=== PATIENT | male | born 1965 | race African-American/Black ===

== ENCOUNTER 2017-06-19 00:42 | Emergency (ER) | payer SELFPAY ==
[2017-06-19 00:51] VITALS: BP 164/94; BMI 34.2
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
== END 2017-06-19 01:10 | disposition left against medical advice (07) ==
LOC: ER 00:42
DX: S09.8XXA Other specified injuries of head, initial encounter (principal); S00.81XA Abrasion of other part of head, initial encounter; V19.9XXA Pedal cyclist (driver) (passenger) injured in unspecified traffic accident, initial encounter
CPT/HCPCS: 99281; 99282

== ENCOUNTER 2025-03-12 11:42 | Observation (INO) ==
[2025-03-12 12:12] LABS: MEAN PLATELET VOLUME 8.0 fL (7.4-11.0); RED CELL DISTRIBUTION WIDTH 15.2 % (11.6-16.5)
--- NOTE | 2025-03-12 12:13 | EKG ---
Test Reason : chest pain Blood Pressure : */* mmHG Vent. Rate : 65 BPM Atrial Rate : 65 BPM P-R Int : 156 ms QRS Dur : 102 ms QT Int : 394 ms P-R-T Axes : -2 -34 234 degrees QTc Int : 409 ms Normal sinus rhythm Left axis deviation Moderate voltage criteria for LVH, may be normal variant ( R in aVL , Sibley product ) Nonspecific T wave abnormality Abnormal ECG When compared with ECG of 31-JAN-2025 21:45, No significant change was found Confirmed by Abdelrahman Lake MD ([id number]) on 03/12/2025 12:29:28 PM Referred By: Confirmed By: Abdelrahman Lake MD
--- NOTE | 2025-03-12 12:17 | DR.CP ---
HPI Time Seen Time Seen by Provider: 03/12/25 11:58 PCP Primary Care Physician: CHANTEL Gallegos Complaint Chief Complaint Doctor Comments: 59 yo M, hx of CVA, c/o bilat chest pain for past 48h, accomp by dyspnea. Denies other complaints. Pain currently 06/07. Chief Complaint:: Patient c/o generalized CP, shorntess of breath and dizziness since Tuesday. agrees with this statement and states that she called EMS to him on Tuesday bc he would not respond to her, just look at her, but once EMS arrived he was responding and refused to go to hospital. COVID-19 Coronavirus risk:travel/contact w/high risk person: No Has patient experienced Coronavirus symptoms: No Source History Provided: Patient, Significant Other and EMS Mode of Arrival Mode of Arrival: EMS Timing Onset of Chief Complaint: 03/10/25 Location Chest Pain Radiation Location: None Associated Signs and Symptoms Associated Signs and Symptoms: Shortness of Breath PMH PMH Past Medical History: Yes Past Medical History: COPD, CVA, Gout, Hypertension and Sleep Apnea Past Surgical History: Yes Surgical History: Other Past Surgical History Comment: blood clot removed from brain 2021 Family History History of Family Medical Conditions: Yes Family Medical History: Diabetes Mellitus and Hypertension Social History Type of Tobacco Use: Cigarettes Alcohol Use: None Do you use any recreational Drugs:: No Lives With: Spouse Lives Where: Home Travel Risk Coronavirus risk:travel/contact w/high risk person: No Has patient experienced Coronavirus symptoms: No Infectious screening Have you traveled outside the country in the last 6 months?: No Isolation: Standard ROS Review of Systems Respiratoy: Short of Breath Cardiovascular: Chest Pain All Other Systems: Reviewed and Negative PE Vitals Vitals: Vital Signs Temperature 98.0 F Pulse Rate 55 Pulse Rate 55 Pulse Rate 57 Pulse Rate 57 Pulse Rate 56 Pulse Rate 56 Pulse Rate 58 Pulse Rate 59 Pulse Rate 59 Pulse Rate 62 Pulse Rate 60 Pulse Rate 62 Pulse Rate 70 Pulse Rate 62 Pulse Rate 65 Pulse Rate 66 Pulse Rate 67 Pulse Rate 66 Respiratory Rate 18 Respiratory Rate 18 Respiratory Rate 17 Respiratory Rate 14 Respiratory Rate 16 Respiratory Rate 15 Respiratory Rate 18 Respiratory Rate 19 Respiratory Rate 18 Respiratory Rate 20 Respiratory Rate 19 Respiratory Rate 21 Respiratory Rate 20 Respiratory Rate 20 Respiratory Rate 23 Respiratory Rate 26 Respiratory Rate 23 Respiratory Rate 20 Blood Pressure 174/79 Blood Pressure 155/73 Blood Pressure 137/72 Blood Pressure 150/78 Blood Pressure 151/74 Blood Pressure 180/79 Blood Pressure 180/79 O2 Sat by Pulse Oximetry 98 O2 Sat by Pulse Oximetry 99 O2 Sat by Pulse Oximetry 99 O2 Sat by Pulse Oximetry 96 O2 Sat by Pulse Oximetry 96 O2 Sat by Pulse Oximetry 96 O2 Sat by Pulse Oximetry 97 O2 Sat by Pulse Oximetry 97 O2 Sat by Pulse Oximetry 97 O2 Sat by Pulse Oximetry 97 O2 Sat by Pulse Oximetry 97 O2 Sat by Pulse Oximetry 98 O2 Sat by Pulse Oximetry 96 O2 Sat by Pulse Oximetry 100 O2 Sat by Pulse Oximetry 100 General Limitations: No Limitations General Appearance: Alert and In No Apparent Distress Head Head Exam: Normal Inspection Eyes Eye exam: Normal Appearance ENT ENT Exam: Normal Exam Chest Chest Inspection: Normal Inspection Respiratory Respiratory Exam: Normal Lung Sounds Bilat Cardiovascular Cardiovascular Exam: Regular Rate and Normal Rhythm Pulse: Normal Edema: Normal Abdominal Exam Abdominal Exam: Normal Inspection, Normal Bowel Sounds and Soft Extremities Extremities Exam: Normal Inspection Back Back Exam: Normal Inspection Neurologic Neurological Exam: Other (expressive aphasia) Psychiatric Psychiatric Exam: Normal Affect and Normal Mood Skin Skin Exam: Warm, Dry, Intact and Normal Color ROR Labs Reviewed 03/12/25 11:54 03/12/25 11:54 Laboratory: WBC 9.3 X10^3/uL (3.6-10.0) 03/12/25 11:54 RBC 5.09 X10^6/uL (4.7-6.0) 03/12/25 11:54 Hgb 14.2 g/dL (13.5-18.0) 03/12/25 11:54 Hct 41.9 % (42.0-54.0) L 03/12/25 11:54 MCV 82.3 fL (80.0-100.0) 03/12/25 11:54 MCH 27.8 pg (27.0-34.0) 03/12/25 11:54 MCHC 33.8 g/dL (33.0-35.0) 03/12/25 11:54 RDW 15.2 % (11.6-16.5) 03/12/25 11:54 Plt Count 257 X10^3/uL (150.0-450.0) 03/12/25 11:54 MPV 8.0 fL (7.4-11.0) 03/12/25 11:54 Neut % (Auto) 60.1 % (42.0-75.0) 03/12/25 11:54 Lymph % (Auto) 27.6 % (21.0-51.0) 03/12/25 11:54 [place] % (Auto) 9.1 % (0.0-13.0) 03/12/25 11:54 Eos % (Auto) 2.2 % (0.9-2.9) 03/12/25 11:54 Baso % (Auto) 1.0 % (0.2-1.0) 03/12/25 11:54 Neut # (Auto) 5.6 x10^3/uL (2.2-4.8) H 03/12/25 11:54 Lymph # (Auto) 2.6 X10^3/uL (1.3-2.9) 03/12/25 11:54 [place] # (Auto) 0.8 x10^3/uL (0.3-0.8) 03/12/25 11:54 Eos # (Auto) 0.2 x10^3/uL (0.0-0.2) 03/12/25 11:54 Baso # (Auto) 0.1 X10^3/uL (0.0-0.1) 03/12/25 11:54 Absolute Nucleated RBC 0.0 /100WBC 03/12/25 11:54 PT 16.6 SECONDS (11.8-14.3) 03/12/25 11:54 INR Target Range - 03/12/25 11:54 INR 1.33 (0.8-1.3) H 03/12/25 11:54 APTT 39.6 SECONDS (22.9-36.5) H 03/12/25 11:54 PTT Comment - 03/12/25 11:54 Sodium 138 mmol/L (136-145) 03/12/25 11:54 Corrected Sodium 139 mmol/L (136-145) 03/12/25 11:54 Potassium 3.8 mmol/L (3.5-5.1) 03/12/25 11:54 Chloride 102 mmol/L (98-107) 03/12/25 11:54 Carbon Dioxide 28.0 mmol/L (21-32) 03/12/25 11:54 BUN 12 mg/dL (7-18) 03/12/25 11:54 Creatinine 1.10 mg/dL (0.70-1.30) 03/12/25 11:54 Est GFR (MDRD) Af Amer > 60 (>60) 03/12/25 11:54 Est GFR (MDRD) Non-Af > 60 (>60) 03/12/25 11:54 Glucose 126 mg/dL (65-99) H 03/12/25 11:54 Calcium 8.8 mg/dL (8.5-10.1) 03/12/25 11:54 Corrected Calcium TNP 03/12/25 11:54 Magnesium 1.8 mg/dL (2.0-2.9) L 03/12/25 11:54 Total Bilirubin 0.40 mg/dL (0.2-1.0) 03/12/25 11:54 AST 25 Units/L (15-37) 03/12/25 11:54 ALT 33 Units/L (12-78) 03/12/25 11:54 Alkaline Phosphatase 194 Units/L (46-116) H 03/12/25 11:54 Creatine Kinase 186 Units/L (39-308) 03/12/25 11:54 Troponin I High Sens 8.1 ng/L (4.0-60.0) 03/12/25 11:54 B-Natriuretic Peptide < 5.0 pg/mL (0-79) 03/12/25 11:54 Total Protein 8.7 g/dL (6.4-8.2) H 03/12/25 11:54 Albumin 3.8 g/dL (3.4-5.0) 03/12/25 11:54 Globulin 4.9 g/dL (2.5-4.5) H 03/12/25 11:54 Albumin/Globulin Ratio 0.8 Ratio (1.1-2.1) L 03/12/25 11:54 Opioid Opioid Risk Tool Age (Quinn box if 16-45): No History of Preadolescent Sexual Abuse: No Total: 0 Total Score Risk Category: Low Risk Copyright: Castro MILTON predicting aberrant behaviors Discharge Plan Diagnosis Discharge Problem: Chest pain Discharge Plan Patient Disposition: ADMITTED INPATIENT Condition: Stable Prescriptions: No Action tizanidine 4 mg tablet 4 mg PO TID allopurinol 100 mg tablet 100 mg PO QDAY gabapentin 100 mg capsule 100 mg PO TID ergocalciferol (vitamin D2) 1,250 mcg (50,000 unit) capsule 1,250 mcg PO QWEEK escitalopram oxalate 5 mg tablet 5 mg PO QDAY Repatha SureClick 140 mg/mL pen injector SUBCUT Patient Comments: [NO ORIGINAL SIG] Eliquis 5 mg tablet 1 tab PO BID albuterol sulfate 90 mcg/actuation HFA aerosol inhaler 2 puff inhalation Q6H PRNQty: 6.7 0RF Health Concerns: Post Hospitalization: new medications and changes needed to prevent readmission or further decline. Pt educated and given instructions on all concerns. Plan of Treatment: Continue with present treatment and follow up plan. Pt is to keep follow up appointment as instructed and take medications as ordered. Orders to Discharge Patient Discharge Orders: Transfer (Routine); Ordered 03/12/25 Ordered By: Marino Francis Follow ups/Referrals Follow ups/Referrals: CARLOTA URIBE [Primary Care Provider, MEDICAL] - 3 days Instructions Stand Alone Forms: Find Help Web Site, Post Hospital Follow Up Care Print Language: CUBAN ADDITIONAL NOTES Additional Notes Additional Notes: pt accepted for chest pain admission by Dr Dickson
[2025-03-12 12:23] LABS: INR 1.33 (0.8-1.3)
[2025-03-12] MEDS: MORPHINE SULFATE INJ 4 MG IVP ONE (12:29)
[2025-03-12 12:30] LABS: COR NA(FOR HYPERGLY) 139 mmol/L (136-145); CREATININE 1.10 mg/dL (0.70-1.30); eGFR NON BLACK RACES > 60 (>60)
[2025-03-12] MEDS: ZOFRAN INJ 4 MG VIAL IVP ONE (12:30)
--- NOTE | 2025-03-12 14:12 | RAD ---
EXAM: CHEST, 1 VIEW HISTORY: chest pain; COMPARISON: Prior study or studies were utilized for comparison during interpretation with the most relevant dated 01/31/2025 TECHNIQUE: CHEST, 1 VIEW FINDINGS: Chest: Lines and tubes: Cardiac leads overlie the chest. Mediastinum: Cardiac and mediastinal shadow is within normal limits for size and contour. Pulmonary vessels: No pulmonary vascular congestion. Lung fernandez: No suspicious airspace opacity. Pleura: No effusion. No pneumothorax. Bones and soft tissues: No acute osseous or soft tissue abnormality. IMPRESSION: 1. No acute cardiopulmonary abnormality THIS IS AN ELECTRONICALLY VERIFIED FINAL REPORT 03/12/2025 2:08 PM - Electronically signed by Sachin Mesa MD
[2025-03-12] MEDS ORDERED: TYLENOL 325 MG TAB PO PRN (15:36)
[2025-03-12] MEDS ORDERED: ULTRAM PO PRN (15:36)
[2025-03-12] MEDS ORDERED: MORPHINE SULFATE INJ 2 MG INJ IVP PRN (15:36)
[2025-03-12] MEDS: NS 1,000 ML IV 1,000 ML with MAGNESIUM SULFATE 50% INJ VIAL 1 G IV SCH (15:58)
[2025-03-12] MEDS: PROVENTIL NEB TX 0.083% 2.5MG/ 3ML NEB PRN (17:20)
[2025-03-12 17:25] VITALS: BMI 39.5
--- NOTE | 2025-03-12 17:32 | EKG ---
Test Reason : CHEST PAIN Blood Pressure : */* mmHG Vent. Rate : 66 BPM Atrial Rate : 66 BPM P-R Int : 144 ms QRS Dur : 90 ms QT Int : 404 ms P-R-T Axes : 38 -26 3 degrees QTc Int : 423 ms Normal sinus rhythm Minimal voltage criteria for LVH, may be normal variant ( R in aVL ) Nonspecific T wave abnormality Abnormal ECG When compared with ECG of 12-MAR-2025 12:07, No significant change was found Confirmed by Abdelrahman Lake MD ([id number]) on 03/13/2025 6:07:04 AM Referred By: Confirmed By: Abdelrahman Lake MD
[2025-03-12] MEDS: XOPENEX 1.25 MG/3 ML NEBULE NEB ONE (19:32)
[2025-03-12] MEDS: PROVENTIL NEB TX 0.083% 2.5MG/ 3ML ONE (19:32)
[2025-03-12] MEDS: CONSULT PHARMACY - POTASSIUM & MAGNESIUM XX SCH (19:32)
[2025-03-12] MEDS: ZANAFLEX PO SCH (21:02)
[2025-03-12] MEDS: NEURONTIN CAP 100 MG PO SCH (21:02)
[2025-03-12] MEDS: ELIQUIS PO SCH (21:02)
[2025-03-13] MEDS: NORCO 5/325 MG TAB PO PRN (02:49)
[2025-03-13 06:10] LABS: MEAN PLATELET VOLUME 8.2 fL (7.4-11.0); RED CELL DISTRIBUTION WIDTH 15.4 % (11.6-16.5)
[2025-03-13 06:33] LABS: CREATININE 1.06 mg/dL (0.70-1.30); eGFR NON BLACK RACES > 60 (>60)
[2025-03-13] MEDS ORDERED: LEXAPRO ONE (08:10)
--- NOTE | 2025-03-13 08:35 | DR.H&P ---
H&P History & Physical for Day of: H&P Date: 03/12/25 Chief Complaint Chief Complaint: chest pain, sob History of Present Illness History of Present Illness: PT IS 59 BM, ER ADMISSION WITH CO CHEST PAIN WITH SOB. PT HAS PMH OF CVA ON BEREAVEMENT COUNSELOR ELIQUIS THERAPY AND COPD. PT IS STILL A CURRENT SMOKER. PT SPOUSE REPORTS HE WAS UNRESPONSIVE ON TUESDAY AND SHE CALLED EMS TO EVALUATE. PT "CAME AROUND" AND REFUSED TRANSPORT AT THAT TIME. PT ADMITTED FOR EVALUATION AND TREATMENT OF ACUTE ILLNESS Past Medical History Past Medical History: COPD, CVA, Gout, Hypertension and Sleep Apnea Past Surgical History Surgical History: Other Family History Family Medical History: Diabetes Mellitus and IN Social History Does patient currently use any type of tobacco product: Yes Type of Tobacco Use: Cigarettes Alcohol Use: None Drug Use: None Medications Home Medications: Home Medications Medication Instructions Recorded Confirmed Type apixaban 5 mg tablet (Eliquis) 1 tab PO BID 10/20/22 0 03/12/25 History allopurinol 100 mg tablet 100 mg PO QDAY 03/12/2502/26 History ergocalciferol (vitamin D2) 1,250 1,250 mcg PO QWEEK 0 03/12/25 03/12/25 History mcg (50,000 unit) capsule escitalopram oxalate 5 mg tablet 5 mg PO QDAY 03/12/25 03/12/25 History evolocumab 140 mg/mL subcutaneous 140 mg subcut Q2W 03/12/25 History pen injector (Su Arriaza) gabapentin 100 mg capsule 100 mg PO TID 03/12/2503/12 History tizanidine 4 mg tablet 4 mg PO TID 03/12/25 5 History Allergies Allergies Allergy/AdvReac Type Severity Reaction Status Date / Time No Known Drug Allergies Allergy Verified 03/12/25 12:15 Labs 03/13/25 05:23 03/13/25 05:23 Labs: Laboratory WBC 9.7 X10^3/uL (3.6-10.0) 03/13/25 05:23 RBC 4.86 X10^6/uL (4.7-6.0) 03/13/25 05:23 Hgb 13.6 g/dL (13.5-18.0) 03/13/25 05:23 Hct 40.4 % (42.0-54.0) L 03/13/25 05:23 MCV 83.3 fL (80.0-100.0) 03/13/25 05:23 MCH 27.9 pg (27.0-34.0) 03/13/25 05:23 MCHC 33.6 g/dL (33.0-35.0) 03/13/25 05:23 RDW 15.4 % (11.6-16.5) 03/13/25 05:23 Plt Count 241 X10^3/uL (150.0-450.0) 03/13/25 05:23 MPV 8.2 fL (7.4-11.0) 03/13/25 05:23 Neut % (Auto) 61.2 % (42.0-75.0) 03/13/25 05:23 Lymph % (Auto) 24.6 % (21.0-51.0) 03/13/25 05:23 [place] % (Auto) 11.2 % (0.0-13.0) 03/13/25 05:23 Eos % (Auto) 2.3 % (0.9-2.9) 03/13/25 05:23 Baso % (Auto) 0.7 % (0.2-1.0) 03/13/25 05:23 Neut # (Auto) 5.9 x10^3/uL (2.2-4.8) H 03/13/25 05:23 Lymph # (Auto) 2.4 X10^3/uL (1.3-2.9) 03/13/25 05:23 [place] # (Auto) 1.1 x10^3/uL (0.3-0.8) H 03/13/25 05:23 Eos # (Auto) 0.2 x10^3/uL (0.0-0.2) 03/13/25 05:23 Baso # (Auto) 0.1 X10^3/uL (0.0-0.1) 03/13/25 05:23 Absolute Nucleated RBC 0.0 /100WBC 03/13/25 05:23 PT 16.6 SECONDS (11.8-14.3) 03/12/25 11:54 INR Target Range - 03/12/25 11:54 INR 1.33 (0.8-1.3) H 03/12/25 11:54 APTT 39.6 SECONDS (22.9-36.5) H 03/12/25 11:54 PTT Comment - 03/12/25 11:54 Sodium 140 mmol/L (136-145) 03/13/25 05:23 Corrected Sodium TNP 03/13/25 05:23 Potassium 4.4 mmol/L (3.5-5.1) 03/13/25 05:23 Chloride 105 mmol/L (98-107) 03/13/25 05:23 Carbon Dioxide 29.7 mmol/L (21-32) 03/13/25 05:23 BUN 11 mg/dL (7-18) 03/13/25 05:23 Creatinine 1.06 mg/dL (0.70-1.30) 03/13/25 05:23 Est GFR (MDRD) Af Amer > 60 (>60) 03/13/25 05:23 Est GFR (MDRD) Non-Af > 60 (>60) 03/13/25 05:23 Glucose 101 mg/dL (65-99) H 03/13/25 05:23 Calcium 8.5 mg/dL (8.5-10.1) 03/13/25 05:23 Corrected Calcium TNP 03/13/25 05:23 Magnesium 2.1 mg/dL (2.0-2.9) 03/13/25 05:23 Total Bilirubin 0.40 mg/dL (0.2-1.0) 03/13/25 05:23 AST 27 Units/L (15-37) 03/13/25 05:23 ALT 37 Units/L (12-78) 03/13/25 05:23 Alkaline Phosphatase 177 Units/L (46-116) H 03/13/25 05:23 Creatine Kinase 181 Units/L (39-308) 03/12/25 15:43 Troponin I High Sens 9.4 ng/L (4.0-60.0) 03/12/25 21:16 B-Natriuretic Peptide < 5.0 pg/mL (0-79) 03/12/25 11:54 Total Protein 8.2 g/dL (6.4-8.2) 03/13/25 05:23 Albumin 3.5 g/dL (3.4-5.0) 03/13/25 05:23 Globulin 4.7 g/dL (2.5-4.5) H 03/13/25 05:23 Albumin/Globulin Ratio 0.7 Ratio (1.1-2.1) L 03/13/25 05:23 Review of Systems Constitutional: Weakness Eyes: No Symptoms Reported ENT: No Symptoms Reported Respiratory: Shortness of Breath and Wheezing Cardiovascular: Chest Pain Gastrointestinal: Other (CHOKES EASILY) Genitourinary: Incontinence Musculoskeletal: Arm Pain and Leg Pain Skin: No Symptoms Reported Neurological: Weakness and Change in Speech (CHRONIC, DELAYED AND POOR VERBAL RESPONSE) Physical Exam Vital Signs: Vital Signs Temperature 97.6 F Pulse Rate [Left Radial] 64 Respiratory Rate 19 Respiratory Rate 18 Respiratory Rate 19 Blood Pressure [Left Arm] 145/75 O2 Sat by Pulse Oximetry 97 Oriented: Person Eyes: Normal Ear: Normal Nose: Discharge Throat: Dry Respiratory: Wheezes Throughout, RLL Diminished and LLL Diminished Cardiovascular: Edema Auscultation: Bowel Sounds: Normal Tenderness: Normal Skin: Decreased Turgur Musculoskeletal: Motor Deficit (RUE AND RLE) and Sensory Deficit Psychiatric: Anxiety Speech Pattern: Unclear, Delayed and Slurred Assessment/Plan (1) Chest pain: Status: Acute Plan: ADMIT, SERIAL CE AND EKG CXR ON ADMISSION RESP CONSULT, BP CONTROL CT HEAD RO CVA WITH HX OF AMS ON 03/10 FLP, RESUME ELIQUIS AND STATIN THERAPY (2) Acute exacerbation of chronic obstructive pulmonary disease (COPD): Status: Acute (3) TIA (transient ischemic attack): Status: Acute Plan: SUB ACUTE 03/10 (4) H/O: CVA (cerebrovascular accident): Status: Acute (5) Hypertension: Status: Acute
--- NOTE | 2025-03-13 08:46 | RAD ---
EXAMINATION: CHEST, 1 VIEW HISTORY: chest pain; . COMPARISON STUDY: Chest x-ray 03/12/2025 TECHNIQUE: Single portable AP view chest FINDINGS: Lungs are expanded. Subtle patchy interstitial infiltrates in both lungs. Mild cardiac silhouette enlargement with slight pulmonary vascular congestion. CP angles are sharp. Bones are intact IMPRESSION: Subtle prominent interstitial markings in both lungs. Mild cardiac silhouette enlargement with slight pulmonary vascular congestion. THIS IS AN ELECTRONICALLY VERIFIED FINAL REPORT 03/13/2025 8:42 AM - Electronically signed by Zuleyka Nichole MD
[2025-03-13 08:51] LABS: CHOL/HDL RATIO 3.3 (0.0-5.0)
[2025-03-13] MEDS: LEXAPRO PO SCH (09:15)
[2025-03-13] MEDS: LIPITOR TAB 40 MG PO SCH (09:15)
[2025-03-13] MEDS: ZYLOPRIM PO SCH (09:15)
[2025-03-13] MEDS: PROTONIX TAB 40 MG PO SCH (09:15)
--- NOTE | 2025-03-13 09:40 | CT ---
EXAM: BRAIN W/O CON HISTORY: ams, hx cva; COMPARISON: 11/04/2024 TECHNIQUE: CT of the head obtained without IV contrast. Sagittal and coronal reformatted images were performed. Dose reduction techniques including Automated Exposure Control (AEC) and adjustment of mA and kV were utilized. FINDINGS: No evidence of acute territorial infarct. No acute intracranial hemorrhage. No evidence of intracranial mass or midline shift. No hydrocephalus. No abnormal intra or extra-axial fluid collections. Chronic small vessel ischemic changes. Left frontoparietal and left occipital encephalomalacia. The calvaria is intact. The bilateral mastoid air cells and visualized paranasal sinuses are well pneumatized. The bilateral orbits are unremarkable. IMPRESSION: No acute intracranial findings. THIS IS AN ELECTRONICALLY VERIFIED FINAL REPORT 03/13/2025 9:37 AM - Electronically signed by Valente Nair MD
--- NOTE | 2025-03-13 11:33 | VAS ---
EXAM: CAROTID US HISTORY: HX CVA, R/O CAROTID ARTERY STENOSIS; COMPARISON: CTA neck 07/22/2022 TECHNIQUE: 49 images made by the agricultural service worker. Parekh scale and color flow Doppler images of the right carotid arterial system, left carotid arterial system, and vertebral arterial system were obtained. FINDINGS: Velocities are measured in centimeters per second. Recommendations are based on peer reviewed published data from Society of Radiologists in Ultrasound Consensus Conference, 2003. Right side: Right common carotid and internal carotid arteries are widely patent. No significant plaque disease seen in the right carotid bulb. Relevant systolic velocity in the right common carotid artery measured 77. Peak systolic velocity in the right internal carotid artery measured 60. This yields a systolic velocity ratio of 0.79. The peak ICA end diastolic velocity measured 22. There is no hemodynamically significant stenosis. Right external carotid artery was patent. Right vertebral artery was not imaged by the technologist. Left side: Left common carotid and internal carotid arteries are widely patent. A vascular stent is seen in the carotid bulb. Relevant systolic velocity in the left common carotid artery measured 39. Peak systolic velocity in the left internal carotid artery measured 88. This yields a systolic velocity ratio of 2.3. The peak ICA end diastolic velocity measured 37. There is no hemodynamically significant stenosis. Left external carotid artery was patent. Left vertebral artery was not imaged by the technologist. IMPRESSION: 1. Patent left carotid bulb stent 2. No significant right carotid bulb plaque disease 3. No significant carotid stenosis 4. Vertebral arteries not evaluated THIS IS AN ELECTRONICALLY VERIFIED FINAL REPORT 03/13/2025 11:29 AM - Electronically signed by Jeremy Coello MD
[2025-03-13] MEDS: NS 1,000 ML IV 1,000 ML with MAGNESIUM SULFATE 50% INJ VIAL 1 G IV SCH (16:59)
[2025-03-13] MEDS ORDERED: LASIX IVP SCH (17:00)
[2025-03-13] MEDS: LASIX IVP SCH (17:20)
[2025-03-13] MEDS: K-DUR TAB 20 MEQ PO SCH (17:20)
[2025-03-14 06:03] LABS: MEAN PLATELET VOLUME 8.4 fL (7.4-11.0); RED CELL DISTRIBUTION WIDTH 15.4 % (11.6-16.5)
[2025-03-14 06:19] LABS: COR NA(FOR HYPERGLY) 141 mmol/L (136-145); CREATININE 1.40 mg/dL (0.70-1.30); eGFR NON BLACK RACES 55 (>60)
[2025-03-14] MEDS ORDERED: LEXAPRO ONE (07:48)
[2025-03-14] MEDS: K-DUR TAB 20 MEQ PO SCH (14:25)
[2025-03-14] MEDS: LASIX IVP ONE (14:25)
[2025-03-14 23:46] VITALS: RESP 19
[2025-03-15 06:33] LABS: MEAN PLATELET VOLUME 8.4 fL (7.4-11.0); RED CELL DISTRIBUTION WIDTH 15.5 % (11.6-16.5)
[2025-03-15 06:45] LABS: COR NA(FOR HYPERGLY) 142 mmol/L (136-145); CREATININE 1.12 mg/dL (0.70-1.30); eGFR NON BLACK RACES > 60 (>60)
--- NOTE | 2025-03-15 07:18 | RAD ---
EXAM: CHEST, 1 VIEW HISTORY: CHF, COPD; CVA, HTN, VIOLET COMPARISON: 03/13/2025 TECHNIQUE: AP FINDINGS: Stable cardiac silhouette. Pulmonary vascular engorgement. Increased hazy perihilar opacities. Suspected layering pleural effusions. No visible pneumothorax. IMPRESSION: Increased pulmonary edema and suspected layering pleural effusions. THIS IS AN ELECTRONICALLY VERIFIED FINAL REPORT 03/15/2025 7:15 AM - Electronically signed by Thomas Matute MD
[2025-03-15] MEDS ORDERED: LEXAPRO ONE (08:24)
[2025-03-15] MEDS ORDERED: K-DUR TAB 20 MEQ PO SCH (09:00)
[2025-03-15] MEDS: LASIX IVP ONE (09:12)
[2025-03-15] MEDS ORDERED: MILK OF MAGNESIA PO PRN (09:24)
[2025-03-15] MEDS ORDERED: COLACE CAP 100 MG PO PRN (09:24)
--- NOTE | 2025-03-15 10:30 | RAD ---
EXAM: CHEST, 1 VIEW HISTORY: increased pulmonary edema; COMPARISON: 03/14/2025 TECHNIQUE: CHEST, 1 VIEW FINDINGS: Chest: Lines and tubes: None Mediastinum: Cardiac and mediastinal shadow is within normal limits for size and contour. Pulmonary vessels: No pulmonary vascular congestion. Lung fernandez: No suspicious airspace opacity. Pleura: No effusion. No pneumothorax. Bones and soft tissues: No acute osseous or soft tissue abnormality. IMPRESSION: 1. No acute cardiopulmonary abnormality THIS IS AN ELECTRONICALLY VERIFIED FINAL REPORT 03/15/2025 10:26 AM - Electronically signed by Sachin Mesa MD
[2025-03-15 12:20] VITALS: BP 141/67; PULSE 62; TEMP 98.3; O2SAT 95
[2025-03-18] MEDS ORDERED: VITAMIN D (1.25MG) PO SCH (15:49)
== END 2025-03-15 13:35 | disposition home health service (06) ==
LOC: MED/SURG 11:42 → ER 11:42 → MED/SURG 16:17
PROVIDERS: ADMIT Internal Medicine; ATTEND Internal Medicine
DX: R73.09 Other abnormal glucose; D72.829 Elevated white blood cell count, unspecified; Z03.818 Encounter for observation for suspected exposure to other biological agents ruled out; R53.1 Weakness; I69.851 Hemiplegia and hemiparesis following other cerebrovascular disease affecting right dominant side; M79.606 Pain in leg, unspecified; Z79.01 Long term (current) use of anticoagulants; I10 Essential (primary) hypertension; R07.89 Other chest pain; E78.5 Hyperlipidemia, unspecified; R06.02 Shortness of breath; J44.1 Chronic obstructive pulmonary disease with (acute) exacerbation; R41.82 Altered mental status, unspecified; D64.9 Anemia, unspecified; Z72.0 Tobacco use; I50.9 Heart failure, unspecified; R94.31 Abnormal electrocardiogram [ECG] [EKG]; R26.89 Other abnormalities of gait and mobility; R42 Dizziness and giddiness; R47.01 Aphasia; R79.1 Abnormal coagulation profile; M79.603 Pain in arm, unspecified; Z59.86 Financial insecurity; R06.03 Acute respiratory distress; J81.0 Acute pulmonary edema